=== PATIENT | male | born 1965 | race Caucasian/White ===

== ENCOUNTER 2024-04-12 12:42 | Outpatient (RCR) | payer BC, SELFPAY | END 2024-05-30 09:41 | disposition home or self-care (01) | PROVIDERS: PCP Physician Assistant Medical; Visit Provider Physician Assistant Medical | DX: M54.2 Cervicalgia (principal); M43.00 Spondylolysis, site unspecified; Z51.89 Encounter for other specified aftercare; M62.89 Other specified disorders of muscle | CPT/HCPCS: 97140; 97161 ==